=== PATIENT | male | born 1955 | race Caucasian/White ===

== ENCOUNTER → 2016-12-05 | Outpatient (CLI) | payer BC ==
--- NOTE | 2016-12-06 00:17 | HKNOTE ---
DATE OF SERVICE: 12/05/2016 MAIN COMPLAINT: Pain in the right knee. HISTORY OF MAIN COMPLAINT: The patient is a 61-year-old male who underwent right knee hemiarthropla sty by Dr. Montoya 5 years ago. He had an excellent result, but he started developing pain 6 jermain hs ago. This pain has become worse in the past 2 months. He recently saw Dr. Montoya who evaluat ed his knee and told him that we would need to have the implant converted to a total knee replacemen t implant. The patient comes in for a second opinion and is referred by Dr. Hugh Nugent, who is both his physician and a personal friend. PRESENT COMPLAINTS: The patient gets pain in the right knee, which is mild. The pain frequently fe els as if it is in the hamstring tendons. He has no problems going up and down stairs, but going up an incline seems to aggravate his pain. Occasionally the knee feels weak, but there is no actual i nstability. The knee does not swell, does not lock. Since he has been taking it easy, he frequently has no pain for a week or more. The longest time th at he has gone without pain is about 2 weeks. Meanwhile, since he has not been able to exercise, he has gained weight. On a flat and level surface, he can walk 2 to 3 blocks before the pain starts. He does not use a wa lking aid. He does not limp. He does not have a shoe lift. He can clip his toenails and tie his s hoelaces. PAST ORTHOPEDIC HISTORY: PREVIOUS ORTHOPEDIC OPERATIONS: Hemiarthroplasty of the right knee 5 years ago. PRIOR CORTISONE INTAKE: None. ALCOHOL INTAKE: Zero. OTHER JOINT PROBLEMS: Left shoulder pain. BLOOD TESTS FOR ARTHRITIS: None. PRIOR INJURIES TO HIPS OR KNEES: None. WORK STATUS: The patient is a retired musician and teacher music. PAST MEDICAL HISTORY: 1. Diabetes type 1. 2. Chronic insomnia. PAST SURGICAL HISTORY: 1. Hernia repairs, 1989 and 1997. 2. Partial right knee replacement by Dr. Montoya, 2011. 3. Right shoulder surgery by Dr. Pineda, 2011. 4. Left shoulder surgery by Dr. Pineda, 2010. ALLERGIES: NONE. MEDICATIONS: 1. Wellbutrin-XL 150 mg a day. 2. Zoloft 100 mg twice a day. 3. Benicar 20 mg once a day. 4. Lipitor 20 mg once a day. 5. Restoril 30 mg at bedtime. 6. NovoLog 10 units twice a day. 7. Levemir 20 units once a day. 8. Ecotrin 81 mg once a day. FAMILY HISTORY: Father at 64 of heart problems. Mother age 87, alive and well. SYSTEMS REVIEW: Occasional skipping heartbeats. Diabetes type 1. Otherwise negative. HABITS: The patient does not smoke or drink alcoholic beverages. PHYSICAL EXAMINATION: GENERAL: The patient is an extremely fit looking and obviously tall 61-year-old male. He walks wit hout a walking aid. His gait is normal. VITAL SIGNS: Height 6 feet 5 inches, weight 240 pounds. Blood pressure 135/85, temperature 98.7. DIRECTED PHYSICAL EXAMINATION TO RIGHT KNEE: No external sign of infection or inflammation. Midlin e scar of previous knee surgery. Extension is full. Flexion is to 120 degrees. Minimal pain on fo rced flexion. 3+ crepitus under the patella. Collateral ligaments are intact. Cruciate ligaments are intact. 1+ effusion. IMAGING: Plain x-rays of the right knee brought with him from Dr. Montoya's office were reviewed. These show a medial unicompartmental knee replacement. All components are well aligned and well a ttached to the bone without any evidence of loosening. Mild narrowing of the medial joint space. M arked narrowing of the patellofemoral joint space with osteophyte formation, subchondral sclerosis, and intraosseous cyst formation. A 3 phase technetium bone scan obtained on 10/06/[address] Darin Luciano as showing "right knee medial compartment hemiarthroplasty with increased periprosthetic uptake of tracer. Dif ferential consideration includes aseptic loosening or infection." CBC obtained on 10/04/2016 white cell count 7.8. Sedimentation rate 2. DISCUSSION: A 61-year-old male who underwent a right knee medial hemiarthroplasty [address] Manohar Montoya. He had an excellent result and started developing pain approximately 6 months ago. Pain has increas ed in the past 2 months. He has absolutely no pain at rest and, in fact, he occasionally goes 1 to 2 weeks without any pain a t all. There is no suggestion whatsoever of infection in the knee with a normal white cell count an d a normal temperature today, and no pain at rest. The abnormalities noted on the 3 phase technetium bone scan can be explained by arthritic change in the knee. MANAGEMENT: The patient is advised that the components appear to be well attached to the bone and t here is no sign of infection. He will definitely need to have a revision of the hemiarthroplasty to a full knee replacement at some time in the relatively near future, but since there is nothing urg ent going on in his knee, he could wait for as long as he likes until the pain becomes more persiste nt. He indicates that if he is going to have to have a full knee replacement at some time or other than he would rather proceed with the surgery relatively soon. The procedure was discussed with him in a fair amount of detail. Some the possible postoperative co mplications were discussed with him. The patient was given my manual titled "Arthritis of the Knee Joint" which contains information conc erning the various alternatives of treatment. It includes various forms of conservative treatment, including the use of nonsteroidal anti-inflammatory medications and their dangers. Various surgical alternatives are discussed. The technique of total knee replacement is discussed in detail, includ ing possible complications. Included also is a section on the possible complications of blood trans fusion, a section on postoperative precautions, and an exercise program to follow at home after tota l knee replacement. The long-term care of a total knee replacement implant is also covered in tania fisher. The patient was instructed to read this manual in its entirety since it is, in and of itself, a form of informed consent. After reading this manual, the patient will make a list of further questi ons that may not have been covered adequately. The patient was further advised that this manual, al though exhaustive in nature, is only intended to supplement and complement a one-on-one discussion w ith me. Although this patient came to see me for a second opinion, he seems to be inclined towards having me perform his surgery. The patient will decide what he would like to do and when he would like to do it. FINAL DIAGNOSES: 1. Status post medial hemiarthroplasty of the right knee. 2. Degenerative osteoarthritis of the patellofemoral joint of the right knee. 3. Type 1 diabetes. 4. Chronic insomnia. The patient will call if he wishes to proceed with surgery. Dictated By: GUILLERMO KELLEY/MICAH Conf#: [id number] DID#: [id number]
== END | disposition home or self-care (01) ==
LOC: HKI 14:33
DX: Z47.89 Encounter for other orthopedic aftercare (principal); M17.11 Unilateral primary osteoarthritis, right knee; E10.9 Type 1 diabetes mellitus without complications
CPT/HCPCS: G0463

== ENCOUNTER → 2017-01-16 | Outpatient (CLI) | payer BC ==
--- NOTE | 2017-01-16 20:35 | HKNOTE ---
DATE OF SERVICE: 01/16/2017 MAIN COMPLAINT: Pain in the right knee. HISTORY OF MAIN COMPLAINT: The patient is a 61-year-old male who was previously seen by me on 12/05 complaining of pain in his right knee. The patient was diagnosed as having severe osteoarthri tis of the patellofemoral joint, plus status post hemiarthroplasty of the right knee. The patient comes in complaining that his pain has become much worse. He gets pain with every step that he takes. He has no days without pain. He takes [id number] anti-inflammatory medication s (ibuprofen twice a day). This still does not give him sufficient relief. He gets some pain at [facility]. He limps all the time. He uses a cane most of the time in his left hand. PHYSICAL EXAMINATION: VITAL SIGNS: Height 6 feet 5 inches, weight 240 pounds. Blood pressure 124/70, temperature 97.6. GAIT: The patient's gait is antalgic. He brings a cane with him. RIGHT KNEE: No external sign of infection or inflammation. Extension is full. Flexion is to 105 d egrees. Pain on attempting to force flex beyond that range. 3+ crepitus under the patellar 2+ effu anusha. No external sign of infection. IMAGING: Plain x-rays of his knee obtained at the last visit were reviewed. Although there is rela tively good joint space medially, the patellofemoral joint is severely arthritic with [id number] c ontact, osteophyte formation, and subchondral sclerosis. DISCUSSION: The patient was advised that sooner or later he is going to need to have conversion of the knee hemiarthroplasty to a full knee replacement. The patient indicates that "I'm at that point now." In my opinion, this man is having sufficiently severe symptoms that he is probably a candidate for s urgery at this point. The patient was advised that we will obtain authorization to proceed with the procedure. Dictated By: GUILLERMO KELLEY/MICAH Conf#: [id number] DID#: [id number]
== END | disposition home or self-care (01) ==
LOC: HKI 14:42
DX: M25.561 Pain in right knee (principal); M17.11 Unilateral primary osteoarthritis, right knee; Z96.641 Presence of right artificial hip joint